=== PATIENT | female | born 1955 ===

== ENCOUNTER 2017-04-12 23:18 | Emergency (ER) | payer OTHER ==
[2017-04-12] MEDS ORDERED: Albuterol-Ipratrop 3 mg / 0.5 (3 ml) UD IH STA (23:33)
--- NOTE | 2017-04-12 23:40 | ED PDOC ---
Arrival/HPI - General Chief Complaint: Shortness Of Breath Time Seen by Provider: 04/12/17 23:33 Historian: Patient, Family - History of Present Illness Narrative History of Present Illness (Text): 04/12/17 23:33 A 62 year old female, whose past medical history includes asthma, hypertension, and skin CA, is accompanied by family and presents to the emergency department complaining of shortness of breath. Patient translated by family member. Per family member, patient has been sick since , but began experiencing shortness of breath and coughing since this morning. Also, patient experiences rhinorrhea for a while. Patient reports taking hypertension medication this morning, and upon arrival to ER, oxygen given to her has helped shortness of breath eleviate slightly. Patient denies any fever, nausea, vomiting, diarrhea, appetite changes, or any other complaints at this time. No PMD Time/Duration: Other (this morning) Past Medical History - Provider Review Nursing Documentation Reviewed: Yes - Cardiac Hx Cardiac Disorders: Yes Hx Hypertension: Yes - Pulmonary Hx Respiratory Disorders: Yes Hx Asthma: Yes - Hematological/Oncological Hx Blood Disorders: Yes Hx Cancer: Yes (squamous cell carcinoma) - Musculoskeletal/Rheumatological Hx Musculoskeletal Disorders: Yes Hx Arthritis: Yes - Gastrointestinal Hx Gastrointestinal Disorders: Yes Hx Gastroesophageal Reflux: Yes - Psychiatric Hx Substance Use: No Family/Social History - Physician Review Nursing Documentation Reviewed: Yes Family/Social History: No Known Family HX Smoking Status: Never Smoked Hx Alcohol Use: No Hx Substance Use: No Allergies/Home Meds Allergies/Adverse Reactions: Allergies Penicillins Allergy (Verified 04/12/17 23:21) ANAPHYLAXIS Home Medications: Home Meds Medication Instructions Recorded Confirmed Albuterol 0.042% [Albuterol 0.042% 04/12/17 Inhal Kaykay (1.25mg/3ml) UD] Famotidine [Pepcid] 04/12/17 Losartan [Cozaar] 04/12/17 Ranitidine HCl [Zantac 75] 04/12/17 Review of Systems - Physician Review All systems were reviewed & negative as marked: Yes - Review of Systems Constitutional: absent: Fevers ENT: Rhinorrhea (for a while) Respiratory: SOB (since this morning), Cough (since this morning) Cardiovascular: Chest Pain Gastrointestinal: absent: Diarrhea, Nausea, Vomiting, Appetite Changes Neurological: Headache Physical Exam Vital Signs Temp Pulse Resp BP Pulse Ox 04/13/17 02:06 98.4 F 86 20 123/64 98 04/13/17 00:10 82 22 126/67 98 - Systems Exam Respiratory/Chest: Present: Decreased Breath Sounds. No: Good Air Exchange ( poor air movement) Cardiovascular: Present: Regular Rate and Rhythm (non-accelerated) Lower Extremity: Present: NORMAL PULSES. No: Edema, Cyanosis Medical Decision Making ED Course and Treatment: 04/12/17 23:38 Impression: 62 year old female with shortness of breath. Physical exam shows regular rate and rhythm, non-accelerated; diminished breath sounds and poor air movement; good pulses of lower extremities, no cyanosis, no edema. Plan: -- EKG -- Chest X-ray -- Labs -- Duoneb -- Reassess and disposition Progress Notes: EKG: Ordered, reviewed, and independently interpreted the EKG. Rate : 93 BPM Rhythm : NSR Interpretation : Normal intervals, non-specific ST- and T-wave changes, LVH by voltage criteria. Comparison : No previous EKG for comparison. 04/13/17 01:52 On re-evaluation, patient feels better and is in no acute distress. I have discussed the results and plan with the patient, who expresses understanding. Patient in agreement with plan to be discharged home. Patient is stable for discharge. Patient was instructed to follow up with physician or return if symptoms worsen or new concerning symptoms arise. Patient will be given one more nebulizer treatment and oral steroid. Being sent home with steroid taper, box of 25 nebulizers, and nebulizer machine. - Lab Interpretations Lab Results: 04/13/17 00:00 04/13/17 00:00 Lab Results 04/13/17 00:00: Sodium 139, Potassium 3.4 L, Chloride 101, Carbon Dioxide 27, Anion Gap 15, BUN 17, Creatinine 0.6 L, Est GFR ( Amer) > 60, Est GFR ( Non-Af Amer) > 60, Random Glucose 147 H, Calcium 9.5, Total Bilirubin 0.4, AST 30, ALT 31, Alkaline Phosphatase 63, Lactate Dehydrogenase 385, Total Creatine Kinase 35, Troponin I < 0.01, Total Protein 7.6, Albumin 4.4, Globulin 3.2, Albumin/Globulin Ratio 1.4 04/13/17 00:00: WBC 7.9, RBC 4.43, Hgb 12.8, Hct 40.4, MCV 91.2, MCH 28.9, MCHC 31.7, RDW 14.0, Plt Count 263, MPV 10.3, Gran % 56.9, Lymph % (Auto) 27.4, [place] % (Auto) 7.7 H, Eos % (Auto) 7.6 H, Baso % (Auto) 0.4, Gran # 4.49, Lymph # 2.2 , [place] # 0.6, Eos # 0.6, Baso # 0.03 I have reviewed the lab results: Yes - RAD Interpretation Radiology Orders: 04/12/17 23:34 CHEST PORTABLE [RAD] Stat - Medication Orders Current Medication Orders: Discontinued Medications Acetaminophen (Tylenol 325mg Tab) 975 mg PO STAT STA Stop: 04/13/17 00:53 Last Admin: 04/13/17 00:59 Dose: 975 mg MAR Pain/Vitals Document 04/13/17 00:59 SS (Rec: 04/13/17 00:59 SS [id number]) Pain Reassessment Is This A Pain ReAssessment? 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 Hydrox/Mg Hydrox/Simethicone (Maalox Plus 30 Ml) 30 ml PO STAT STA Stop: 04/13/17 01:01 Last Admin: 04/13/17 01:18 Dose: 30 ml Albuterol Sulfate (Albuterol 0.083% Inhal Kaykay (2.5 Mg/3 Ml) Ud) 2.5 mg INH STAT STA Stop: 04/13/17 01:42 Last Admin: 04/13/17 01:49 Dose: 2.5 mg Albuterol/Ipratropium (Duoneb 3 Mg/0.5 Mg (3 Ml) Ud) 3 ml IH STAT STA Stop: 04/12/17 23:34 Last Admin: 04/12/17 23:56 Dose: 3 ml Prednisone (Prednisone Tab) 60 mg PO STAT ONE Stop: 04/13/17 01:51 Last Admin: 04/13/17 02:04 Dose: 60 mg - Scribe Statement The provider has reviewed the documentation as recorded by the Osmel Stuart Provider Scribe Attestation: All medical record entries made by the Scribe were at my direction and personally dictated by me. I have reviewed the chart and agree that the record accurately reflects my personal performance of the history, physical exam, medical decision making, and the department course for this patient. I have also personally directed, reviewed, and agree with the discharge instructions and disposition. Disposition/Present on Arrival - Present on Arrival Any Indicators Present on Arrival: No History of DVT/PE: No History of Uncontrolled Diabetes: No Urinary Catheter: No History of Decub. Ulcer: No History Surgical Site Infection Following: None - Disposition Have Diagnosis and Disposition been Completed?: Yes Diagnosis: Asthma Disposition: HOME/ ROUTINE Disposition Time: 03:50 Patient Plan: Discharge Condition: GOOD Discharge Instructions (ExitCare): Asthma (ED) Print Language: CYPRIOT Prescriptions: Albuterol 0.083% [Albuterol 0.083% Inhal Kaykay (2.5 mg/3 ml) UD] 2.5 mg IH Q4 PRN #25 neb PRN Reason: dyspnea Nebulizer and Compressor [Comp-Air Nebulizer System] 1 each QID #1 each predniSONE [predniSONE Tab] 20 mg PO DAILY #5 tab Referrals: [facility] [place] [Outside] - Follow up with primary Forms: [employer] (Ugandan)
[2017-04-13 00:16] VITALS: O2SAT 98
[2017-04-13 00:29] LABS: ALB/GLOB RATIO 1.4 (1.1-1.8); ALKALINE PHOSPHATASE 63 U/L (38-126); ALT/SGPT 31 U/L (7-56); AST/SGOT 30 U/L (14-36); BILIRUBIN,TOTAL 0.4 mg/dL (0.2-1.3); BLOOD UREA NITROGEN 17 mg/dL (7-21); CALCIUM 9.5 mg/dL (8.4-10.5); CARBON DIOXIDE 27 mmol/L (21-33); CHLORIDE 101 mmol/L (98-107); GFR AFRICAN-AMERICAN > 60; GLUCOSE,RANDOM 147 mg/dL (70-110); POTASSIUM 3.4 mmol/L (3.6-5.0); SODIUM 139 mmol/L (132-148); TOTAL PROTEIN 7.6 g/dL (5.8-8.3)
[2017-04-13 00:36] LABS: BASO # 0.03 K/mm3 (0.0-2.0); BASO % 0.4 % (0.0-3.0); EOS # 0.6 (0.0-0.7); EOS % 7.6 % (1.5-5.0); GRAN # 4.49 (1.4-6.5); GRAN % 56.9 % (50.0-68.0); HEMATOCRIT 40.4 % (36.0-48.0); LYMPH # 2.2 (1.2-3.4); LYMPH % 27.4 % (22.0-35.0); MEAN CELL VOLUME 91.2 fl (80.0-105.0); MEAN CORPUSCULAR HEMOGLOBIN 28.9 pg (25.0-35.0); MEAN CORPUSCULAR HGB CONC 31.7 g/dl (31.0-37.0); MEAN PLATELET VOLUME 10.3 fl (7.0-11.0); MONO # 0.6 (0.1-0.6); MONO % 7.7 % (1.0-6.0); WHITE BLOOD COUNT 7.9 10^3/ul (4.5-11.0)
[2017-04-13 00:41] LABS: TROPONIN I < 0.01 ng/mL
[2017-04-13] MEDS ORDERED: Alum-Mag Hydrox-Simethicone Susp (30 mL) PO STA (01:00)
[2017-04-13] MEDS ORDERED: Albuterol 0.083% Inhal Sol (2.5 mg/3 mL) UD INH STA (01:41)
[2017-04-13 02:07] VITALS: BP 123/64; PULSE 86; RESP 20; TEMP 98.4
--- NOTE | 2017-04-13 10:27 | RAD ---
HISTORY: SOB COMPARISON: No prior. FINDINGS: LUNGS: Poor inspiration with low lung volumes, crowded bronchovascular markings and minor bibasilar atelectasis. PLEURA: No significant pleural effusion identified, no pneumothorax apparent. CARDIOVASCULAR: Heart appears enlarged. OSSEOUS STRUCTURES: No significant abnormalities. VISUALIZED UPPER ABDOMEN: Normal. OTHER FINDINGS: None. IMPRESSION: Poor inspiration with low lung volumes, crowded bronchovascular markings and minor bibasilar atelectasis.
--- NOTE | 2017-04-13 20:07 | CARD ---
APPROVED REPORT EKG Measurement Heart [id number] [id number] <Conclusion> Normal sinus rhythm Voltage criteria for left ventricular hypertrophy Nonspecific T wave abnormality Abnormal ECG
== END 2017-04-13 02:20 | disposition home or self-care (01) ==
LOC: ED 23:18
DX: J45.909 Unspecified asthma, uncomplicated (principal); I10 Essential (primary) hypertension; Z88.0 Allergy status to penicillin

== ENCOUNTER 2017-04-15 01:31 | Inpatient (IN) | payer OTHER ==
[2017-04-15] MEDS ORDERED: Albuterol-Ipratrop 3 mg / 0.5 (3 ml) UD IH STA (01:54)
--- NOTE | 2017-04-15 01:56 | ED PDOC ---
Arrival/HPI - General Chief Complaint: Chest Pain Time Seen by Provider: 04/15/17 01:32 Historian: Patient, Endodontic Assistant - History of Present Illness Narrative History of Present Illness (Text): 04/15/17 01:53 62 year old female, whose past medical history includes asthma, hypertension, and skin cancer, presents to the ED complaining of chest pain and shortness of breath tonight. Patient reports returning from [place] four days ago where she has been given IV medications after inhaling chlorine and was also given prescriptions, which she never filled. Patient was evaluated in the Emergency department on 04/12/17 for shortness of breath and was prescribed Prednisone but did not start it until today. Patient also complains of nasal congestion. Patient denies any fever, chills, nausea, vomiting, diarrhea, back pain, neck pain, headache, dizziness, or any other complaints. Time/Duration: < week Symptom Onset: Gradual Symptom Course: Unchanged Activities at Onset: Rest Context: Home Past Medical History - Provider Review Nursing Documentation Reviewed: Yes - Reproductive Menopause: Yes - Cardiac Hx Cardiac Disorders: Yes Hx Hypertension: Yes - Pulmonary Hx Respiratory Disorders: Yes Hx Asthma: Yes - Neurological Hx Neurological Disorder: No - HEENT Hx HEENT Disorder: No - Renal Hx Renal Disorder: No - Endocrine/Metabolic Hx Endocrine Disorders: No - Hematological/Oncological Hx Blood Disorders: Yes Hx Cancer: Yes (squamous cell carcinoma) - Musculoskeletal/Rheumatological Hx Musculoskeletal Disorders: Yes Hx Arthritis: Yes - Gastrointestinal Hx Gastrointestinal Disorders: Yes Hx Gastroesophageal Reflux: Yes - Genitourinary/Gynecological Hx Genitourinary Disorders: No - Psychiatric Hx Psychophysiologic Disorder: No Hx Substance Use: No Family/Social History - Physician Review Nursing Documentation Reviewed: Yes Family/Social History: Unknown Family HX Smoking Status: Never Smoked Hx Alcohol Use: No Hx Substance Use: No Allergies/Home Meds Allergies/Adverse Reactions: Allergies Penicillins Allergy (Verified 04/15/17 01:43) ANAPHYLAXIS Home Medications: Home Meds Medication Instructions Recorded Confirmed Famotidine [Pepcid] 20 mg PO BID 04/12/17 04/15/17 Losartan [Cozaar] 12.5 mg PO DAILY 04/12/17 04/15/17 Ranitidine HCl [Zantac 75] 75 mg PO DAILY 04/12/17 04/15/17 Review of Systems - Physician Review All systems were reviewed & negative as marked: Yes - Review of Systems Constitutional: Normal. absent: Fevers Eyes: Normal ENT: Sinus Congestion Respiratory: SOB. absent: Cough Cardiovascular: Chest Pain Gastrointestinal: Normal. absent: Abdominal Pain Genitourinary Female: Normal Musculoskeletal: Normal Skin: Normal Neurological: Normal. absent: Headache, Dizziness Endocrine: Normal Hemo/Lymphatic: Normal Psychiatric: Normal Physical Exam Vital Signs Reviewed: Yes Vital Signs Temp Pulse Resp BP Pulse Ox 04/15/17 06:10 18 04/15/17 05:21 98.2 F 86 18 146/76 99 04/15/17 02:33 98.0 F 84 17 153/79 H 95 04/15/17 01:43 98.2 F 76 14 153/79 H 98 Temperature: Afebrile Blood Pressure: Normal Pulse: Regular Respiratory Rate: Normal Appearance: Positive for: Well-Appearing, Non-Toxic, Comfortable Pain Distress: None Mental Status: Positive for: Alert and Oriented X 3 - Systems Exam Head: Present: Atraumatic, Normocephalic Pupils: Present: PERRL Extroacular Muscles: Present: EOMI Conjunctiva: Present: Normal Mouth: Present: Moist Mucous Membranes Neck: Present: Normal Range of Motion Respiratory/Chest: Present: Clear to Auscultation, Good Air Exchange. No: Respiratory Distress, Accessory Muscle Use, Wheezes, Decreased Breath Sounds, Rales, Rhonchi, Tender to Palpation Cardiovascular: Present: Regular Rate and Rhythm, Normal S1, S2. No: Murmurs Abdomen: Present: Normal Bowel Sounds. No: Tenderness, Distention, Peritoneal Signs Back: Present: Normal Inspection Upper Extremity: Present: Normal Inspection. No: Cyanosis, Edema Lower Extremity: Present: Normal Inspection. No: Edema Neurological: Present: GCS=15, CN II-XII Intact, Speech Normal Skin: Present: Warm, Dry, Normal Color. No: Rashes Psychiatric: Present: Alert, Oriented x 3, Normal Insight, Normal Concentration Medical Decision Making ED Course and Treatment: 04/15/17 01:54 Impression: 62 year old female presents to the ED complaining of chest pain for 4 days. Differential Diagnosis included but are not limited to: asthmatic bronchitis vs pneumonia vs chest pain Plan: -- EGK -- Labs, D-Dimer, cardiac enzymes -- Blood culture -- Chest x-ray -- Albuterol -- Reassess and disposition Prior Visits: Notes and results from previous visits were reviewed. On 04/12/2017, pt was seen in the Emergency department shortness of breath and runny nose. Pt was d/c home. Progress Notes: 04/15/17 02:06 EKG: Ordered, reviewed, and independently interpreted the EKG. Rate : BPM Rhythm : 77 NSR Interpretation : Nonspecific ST/T wave changes. 04/15/17 03:10 Reviewed radiology, Chest X-ray shows no acute processes. 04/15/17 04:21 On reevaluation patient states chest pain and shortness of breath have improved but are still present. Patient offered hospital admission and has agreed with plan, 04/15/17 04:[address] Marcano, covering for Dr. Jarvis, who is aware and agrees with plan. Pt will go to [facility] observation for asthmatic bronchitis. - Lab Interpretations Microbiology Results: Microbiology Results 04/15/17 02:20 Blood-Venous Blood Culture - Preliminary NO GROWTH AFTER 48 HOURS 04/15/17 02:00 Blood-Venous Blood Culture - Preliminary NO GROWTH AFTER 48 HOURS Lab Results: 04/15/17 02:17 04/15/17 02:17 Lab Results 04/15/17 03:15: D-Dimer, Quantitative < 200 04/15/17 02:17: Sodium 138, Potassium 3.9, Chloride 101, Carbon Dioxide 26, Anion Gap 14, BUN 14, Creatinine 0.5 L, Est GFR ( Amer) > 60, Est GFR ( Non-Af Amer) > 60, Random Glucose 99, Calcium 9.2, Total Bilirubin 0.6, AST 23, ALT 30, Alkaline Phosphatase 65, Lactate Dehydrogenase 439, Total Creatine Kinase 40, Troponin I < 0.01, NT-Pro-B Natriuret Pep 43.2, Total Protein 7.8, Albumin 4.3, Globulin 3.4, Albumin/Globulin Ratio 1.2 04/15/17 02:17: WBC 8.3, RBC 4.31, Hgb 12.5, Hct 39.2, MCV 91.0, MCH 29.0, MCHC 31.9, RDW 14.1, Plt Count 263, MPV 10.0, Gran % 63.7, Lymph % (Auto) 27.3, [place] % (Auto) 7.7 H, Eos % (Auto) 1.2 L, Baso % (Auto) 0.1, Gran # 5.30, Lymph # 2.3 , [place] # 0.6, Eos # 0.1, Baso # 0.01 I have reviewed the lab results: Yes - RAD Interpretation Radiology Orders: 04/15/17 01:54 CHEST PORTABLE [RAD] Stat Framework Developer: ED Physician - EKG Interpretation Interpreted by ED Physician: Yes Type: 12 lead EKG - Medication Orders Current Medication Orders: Discontinued Medications Acetaminophen (Tylenol 325mg Tab) 650 mg PO Q4H PRN PRN Reason: Fever >100.5 F Last Admin: 04/17/17 06:29 Dose: 650 mg MAR Pain/Vitals Document 04/17/17 06:29 [email or web address] (Rec: 04/17/17 06:30 [email or web address] [id number]) Pain Reassessment Is This A Pain ReAssessment? No Sleep Is patient sleeping during reassessment? No Presence of Pain Presence of Pain Yes Pain Scale Used Pain Scale Used Numeric Location Pain Location Body Site Temporal Description Intermittent Intensity 6 Scale Used Numeric Radiation Location no Pain Behavior Facial Grimacing Aggravating Factors None Alleviating Factors Medication Albuterol/Ipratropium (Duoneb 3 Mg/0.5 Mg (3 Ml) Ud) 3 ml IH STAT STA Stop: 04/15/17 01:55 Last Admin: 04/15/17 02:30 Dose: 3 ml Albuterol/Ipratropium (Duoneb 3 Mg/0.5 Mg (3 Ml) Ud) 3 ml IH [id number] [facility] Last Admin: 04/17/17 13:17 Dose: Not Given Non-Admin Reason: Patient Refused Albuterol/Ipratropium (Duoneb 3 Mg/0.5 Mg (3 Ml) Ud) 3 ml IH Q2H PRN PRN Reason: Shortness of Breath Budesonide (Pulmicort Respules) 0.5 mg IH [id number] [facility] Last Admin: 04/17/17 07:34 Dose: 0.5 mg Famotidine (Pepcid) 20 mg PO BID [facility] Last Admin: 04/17/17 09:13 Dose: 20 mg Fluticasone Propionate (Flonase) 1 actuation NS DAILY [facility] Last Admin: 04/17/17 09:12 Dose: 1 spray Levofloxacin/Dextrose (Levaquin 750mg) 750 mg in 150 mls @ 100 mls/hr IVPB STAT STA PRN Reason: Protocol Stop: 04/15/17 06:13 Last Admin: 04/15/17 05:15 Dose: 100 mls/hr eMAR Start Stop Document 04/15/17 05:15 BART (Rec: 04/15/17 05:15 B[id number]) Intravenous Solution Start Date 04/15/17 Start Time 05:15 End Date 04/15/17 End time 06:45 Total Infusion Time 90 Ketorolac Tromethamine (Toradol) 30 mg IVP ONCE ONE Stop: 04/15/17 03:20 Last Admin: 04/15/17 04:17 Dose: 30 mg MAR Pain Assessment Document 04/15/17 04:17 JORGE (Rec: 04/15/17 04:17 JORGE [id number]) Pain Reassessment Is this a pain reassessment? Yes Sleep Is patient sleeping during reassessment? No Presence of Pain Presence of Pain Yes Location Pain Location Body Site Chest IVP Administration Document 04/15/17 04:17 JORGE (Rec: 04/15/17 04:17 JORGE [id number]) Charges for Administration # of IVP Administrations 1 Re-Assess: BEVERLEY Pain Assessment Document 04/15/17 05:17 (Rec: 04/15/17 06:44 [email or web address]) Pain Reassessment Is this a pain reassessment? Yes Sleep Is patient sleeping during reassessment? No Presence of Pain Presence of Pain No Levofloxacin (Levaquin) 500 mg PO DAILY BIN PRN Reason: Protocol Last Admin: 04/17/17 09:12 Dose: 500 mg Losartan Potassium (Cozaar) 12.5 mg PO DAILY [facility] Last Admin: 04/17/17 09:11 Dose: 12.5 mg MAR Pulse and Blood Pressure Document 04/17/17 09:11 BIR (Rec: 04/17/17 09:12 BIR [id number]) Pulse Pulse Rate (60-90) 80 Blood Pressure Blood Pressure (100/60-150/90) 125/78 Methylprednisolone (Solu-Medrol) 60 mg IVP ONCE ONE Stop: 04/15/17 04:47 Last Admin: 04/15/17 05:16 Dose: 60 mg IVP Administration Document 04/15/17 05:16 BART (Rec: 04/15/17 05:16 BART [id number]) Charges for Administration # of IVP Administrations 1 Methylprednisolone (Solu-Medrol) 40 mg IVP Q8H [facility] Last Admin: 04/15/17 21:21 Dose: 40 mg IVP Administration Document 04/15/17 21:21 SWE (Rec: 04/15/17 21:21 SWE [id number]) Charges for Administration # of IVP Administrations 1 Methylprednisolone (Solu-Medrol) 40 mg IVP Q12 [facility] Last Admin: 04/16/17 22:06 Dose: 40 mg IVP Administration Document 04/16/17 22:06 [email or web address] (Rec: 04/16/17 22:06 [email or web address] [id number]) Charges for Administration # of IVP Administrations 1 Prednisone (Prednisone Tab) 40 mg PO DAILY [facility] Last Admin: 04/17/17 09:13 Dose: 40 mg - Ektaibe Statement The provider has reviewed the documentation as recorded by the Osmel Castaneda All medical record entries made by the Osmel were at my direction and personally dictated by me. I have reviewed the chart and agree that the record accurately reflects my personal performance of the history, physical exam, medical decision making, and the department course for this patient. I have also personally directed, reviewed, and agree with the discharge instructions and disposition. Disposition/Present on Arrival - Present on Arrival Any Indicators Present on Arrival: No History of DVT/PE: No History of Uncontrolled Diabetes: No Urinary Catheter: No History of Decub. Ulcer: No History Surgical Site Infection Following: None - Disposition Have Diagnosis and Disposition been Completed?: Yes Diagnosis: Asthmatic bronchitis Disposition: HOSPITALIZED Disposition Time: 05:00 Condition: GOOD
[2017-04-15 02:28] LABS: BASO # 0.01 K/mm3 (0.0-2.0); BASO % 0.1 % (0.0-3.0); EOS # 0.1 (0.0-0.7); EOS % 1.2 % (1.5-5.0); GRAN # 5.3 (1.4-6.5); GRAN % 63.7 % (50.0-68.0); HEMATOCRIT 39.2 % (36.0-48.0); LYMPH # 2.3 (1.2-3.4); LYMPH % 27.3 % (22.0-35.0); MEAN CORPUSCULAR HGB CONC 31.9 g/dl (31.0-37.0); MONO # 0.6 (0.1-0.6); MONO % 7.7 % (1.0-6.0); RED CELL DISTRIBUTION WIDTH 14.1 % (11.5-14.5); WHITE BLOOD COUNT 8.3 10^3/ul (4.5-11.0)
[2017-04-15 02:39] LABS: ALB/GLOB RATIO 1.2 (1.1-1.8); ALKALINE PHOSPHATASE 65 U/L (38-126); ALT/SGPT 30 U/L (7-56); AST/SGOT 23 U/L (14-36); BILIRUBIN,TOTAL 0.6 mg/dL (0.2-1.3); BLOOD UREA NITROGEN 14 mg/dL (7-21); CALCIUM 9.2 mg/dL (8.4-10.5); CARBON DIOXIDE 26 mmol/L (21-33); CHLORIDE 101 mmol/L (98-107); GFR AFRICAN-AMERICAN > 60; GLUCOSE,RANDOM 99 mg/dL (70-110); POTASSIUM 3.9 mmol/L (3.6-5.0); SODIUM 138 mmol/L (132-148); TOTAL PROTEIN 7.8 g/dL (5.8-8.3)
[2017-04-15 02:49] LABS: TROPONIN I < 0.01 ng/mL
[2017-04-15] MEDS ORDERED: levoFLOXacin 750 mg in D5W 750 MG/150 ML BAG IVPB STA (04:44)
[2017-04-15] MEDS ORDERED: Albuterol-Ipratrop 3 mg / 0.5 (3 ml) UD IH PRN ×2 (04:44→06:48)
[2017-04-15] MEDS ORDERED: MethylPREDNISolone 40 mg Vial IVP ONE (04:46)
[2017-04-15] MEDS: Albuterol-Ipratrop 3 mg / 0.5 (3 ml) UD IH SCH ×3 (07:44→19:48)
[2017-04-15] MEDS: Budesonide 0.5 mg/2 ml Inhal Susp UD IH SCH ×2 (07:44→19:48)
--- NOTE | 2017-04-15 08:47 | RAD ---
HISTORY: sob COMPARISON: 04/13/2017. FINDINGS: LUNGS: The lungs are clear. PLEURA: No significant pleural effusion identified, no pneumothorax apparent. CARDIOVASCULAR: Normal. OSSEOUS STRUCTURES: No significant abnormalities. VISUALIZED UPPER ABDOMEN: Normal. OTHER FINDINGS: None. IMPRESSION: No active pulmonary disease.
[2017-04-15] MEDS: MethylPREDNISolone 40 mg Vial IVP SCH ×3 (10:25→21:21)
[2017-04-15] MEDS: Fluticasone Nasal 50 mcg/Spray NS SCH (13:18)
--- NOTE | 2017-04-15 17:39 | CARD ---
APPROVED REPORT EKG Measurement Heart [id number] GA 166P1 [id number] <Conclusion> Normal sinus rhythm Voltage criteria for left ventricular hypertrophy Abnormal ECG
[2017-04-15 18:14] VITALS: RESP 20
--- NOTE | 2017-04-15 18:42 | CON ---
DATE: 04/15/2017 PULMONARY CONSULTATION REASON FOR CONSULTATION: Asthma. REFERRING PHYSICIAN: Abdiel Jarvis DO HISTORY OF PRESENT ILLNESS: The patient is a 62-year-old female, with past medical history significant for asthma, recurrent bronchitis, hypertension, who presents to [facility] with a 4-day history of worsening shortness of breath at rest, dyspnea on exertion, cough, and minimal sputum production. There is no history of chest pain, coughing up of blood, or chest pain - made worse with deep respirations. There is no history of temperatures, chills, or infectious exposure. There is no history of night sweats, weight loss, or appetite change prior to the above events. No history of leg or calf pains. No history of syncope or diaphoresis. The patient has traveled back from [place] recently. No history of trauma. REVIEW OF SYSTEMS: The patient also states a runny nose and nasal congestion for the past 4 days. No history of nausea, vomiting, or diarrhea. No acute urinary symptoms. No new neurologic or musculoskeletal complaints. Rest of the review of systems is negative. ALLERGIES: PENICILLIN. SOCIAL HISTORY: Positive for tobacco and negative for alcohol. FAMILY HISTORY: No inheritable diseases. HOME MEDICATIONS: Include Pepcid, Cozaar, albuterol nebulizer treatments, Zantac, and prednisone. PHYSICAL EXAMINATION: GENERAL: The patient is not short of breath at rest. She is not using accessory muscles for breathing. VITAL SIGNS: Temperature is 98.2, pulse 86, respirations 18, blood pressure 146/76. Oxygen saturation on room air is 99%. HEENT: Normocephalic and atraumatic. No JVD. CARDIOVASCULAR: Positive S1 and S2. No S3 gallop. LUNGS: Decreased breath sounds at the bases. [id number]-nb-[id number] rhonchi and wheezing bilaterally. EXTREMITIES: No clubbing, cyanosis or edema. Calves are nontender to palpation. GASTROINTESTINAL: Abdomen is soft, nontender, and nondistended. Bowel sounds are positive. SKIN: No acute rash. NEUROLOGIC: Limited at the present time. PERTINENT LABORATORY DATA: Chest x-ray was done and reviewed. It is a semi-erect portable film. I do not appreciate any new or significant changes - compared to the previous film. Official results are pending. CBC: White count 8.3, hemoglobin 12.5, hematocrit 39.2, platelets of 263,000. D-dimer is negative - less than 200. Complete metabolic profile: Creatinine 0.5. The rest of the metabolic profile is within normal limits. IMPRESSION: 1. Acute bronchitis. 2. Acute sinusitis. 3. Asthma. 4. Hypertension. PLAN: The patient presents to [facility] with a 4-day history of worsening pulmonary symptoms. The patient also complains of a runny nose and nasal congestion for the past 4 days. I did obtain the history with the nurse (who is fluent in Malaysian). I did review the chest x-ray as above. I do not appreciate any new or significant changes. Official results are pending. On physical exam, there is [id number] bronchospasm noted. However, there is no significant alveolar-arterial gradient. Oxygen saturation on room air is 99%. I will start the patient on nebulizer treatments and intravenous steroids. I will also start the patient on nasal steroids - due to her upper respiratory tract symptoms. Lastly, the patient does have a history of smoking (questionable chronic obstructive pulmonary disease). I will also start oral antibiotic therapy this morning. There is no history of temperatures. There is no leukocytosis. The patient does feel better this morning and is clinically improved - compared to the past few days. Additional pulmonary intervention will be based on the clinical status of the patient. I will discuss the above with Dr. Jarvis this morning. Thank you very much for this pulmonary consultation. Ric Damico MD [email or web address]
--- NOTE | 2017-04-15 20:47 | HP ---
HISTORY OF PRESENT ILLNESS: I was called to admit Ms. Matta into the hospital. She comes into the emergency room with a history of being very short of breath, could not catch her breath. She is a 62-year-old female, who was in [place] and she had inhalation of chlorine, was given prescriptions, so she did not fill for prednisone and now she is very congested and short of breath. PAST MEDICAL HISTORY: Asthma, hypertension, skin cancer, menopause, squamous cell carcinoma of the skin, arthritis, and reflux. FAMILY HISTORY: Hypertension in the family. SOCIAL HISTORY: Never smoked. No alcohol. No drugs. ALLERGIES: TO PENICILLIN. MEDICATIONS: She takes Pepcid, Cozaar, and Zantac. REVIEW OF SYSTEMS: No acute vision changes or hearing changes. No sinus congestion. There is shortness of breath. There is chest pain. No abdominal pain. No nausea, vomiting, constipation, or diarrhea. There was wheezing before. No back pain or leg pain. Skin is intact. No lesions with the skin. No headache or dizziness. No sweating. PHYSICAL EXAMINATION: VITAL SIGNS: She has 98 temperature, 84 pulse, 17 respiratory rate, 153/79 blood pressure, and 95% O2 sat. GENERAL: Well appearing, nontoxic, and comfortable. HEENT: Head is atraumatic and normocephalic. Extraocular muscles are intact. Pupils are equal and reactive to light. Throat is moist. NECK: Supple. HEART: Regular rate. Normal S1 and S2. LUNGS: clear to auscultation with decreased breath sounds, occasional rhonchi. ABDOMEN: Soft and nontender. Positive bowel sounds. No guarding. No rebound. No CVA tenderness. Mildly obese. EXTREMITIES: No edema. NEUROLOGIC: GCS is 15. Cranial nerves II through XII grossly intact. SKIN: Warm and dry. No apparent rashes or ulcers. LYMPHATICS: Thyroid is midline. No palpable appreciable lymphadenopathy. LABORATORY DATA: She had 138 sodium, potassium 3.9, BUN 14, creatinine 0.5, GFR is greater than 60, and sugar is 99. Calcium is 9.2, total bilirubin is 0.6, AST is 23, ALT is 30, alkaline phosphatase 65, lactate dehydrogenase is 439, total creatine kinase is 40. Troponin I is less than 0.01. BNP is 42.2. Total protein is 7.8 and albumin is 4.3. D-dimer is less than 200. White count is 8.3, hemoglobin 12.5, hematocrit 39.2, and platelets of 263. On report, she had a chest x-ray, which showed no active disease. IMPRESSION AND PLAN: She had a pulmonary consult with Dr. Damico. She is now on albuterol around the clock, Flonase, Levaquin, Pepcid, Pulmicort, and methylprednisolone 60 mg IV once and 40 IV q.8 hours. She is here for acute asthma with wheezing and shortness of breath. Hopefully, she will improve . Abdiel Jarvis DO MTDD
[2017-04-16] MEDS: Albuterol-Ipratrop 3 mg / 0.5 (3 ml) UD IH SCH ×4 (01:18→19:24)
[2017-04-16 06:22] LABS: HEMATOCRIT 37.3 % (36.0-48.0); MEAN CELL VOLUME 90.8 fl (80.0-105.0); MEAN CORPUSCULAR HEMOGLOBIN 28.7 pg (25.0-35.0); MEAN CORPUSCULAR HGB CONC 31.6 g/dl (31.0-37.0); RED CELL DISTRIBUTION WIDTH 14.1 % (11.5-14.5); WHITE BLOOD COUNT 10.6 10^3/ul (4.5-11.0)
[2017-04-16 06:54] LABS: ALB/GLOB RATIO 1.2 (1.1-1.8); ALKALINE PHOSPHATASE 61 U/L (38-126); ALT/SGPT 26 U/L (7-56); AST/SGOT 18 U/L (14-36); BILIRUBIN,TOTAL 0.5 mg/dL (0.2-1.3); BLOOD UREA NITROGEN 14 mg/dL (7-21); CALCIUM 9.9 mg/dL (8.4-10.5); CARBON DIOXIDE 28 mmol/L (21-33); CHLORIDE 101 mmol/L (98-107); GFR AFRICAN-AMERICAN > 60; GLUCOSE,RANDOM 158 mg/dL (70-110); POTASSIUM 4.1 mmol/L (3.6-5.0); SODIUM 138 mmol/L (132-148); TOTAL PROTEIN 7.1 g/dL (5.8-8.3)
[2017-04-16] MEDS: Budesonide 0.5 mg/2 ml Inhal Susp UD IH SCH ×2 (08:19→19:24)
[2017-04-16] MEDS: Fluticasone Nasal 50 mcg/Spray NS SCH (09:00)
[2017-04-16] MEDS: MethylPREDNISolone 40 mg Vial IVP SCH ×2 (09:00→22:06)
[2017-04-16] MEDS: levoFLOXacin 500 MG TAB PO SCH (09:01)
--- NOTE | 2017-04-16 10:15 | PN ---
DATE: 04/16/2017 PULMONARY NOTE SUBJECTIVE: The patient appears comfortable this morning. She is not short of breath at rest. OBJECTIVE: VITALS (as noted in the computer): Temperature is 97.3, pulse is 58, respirations 18-20, blood pressure 110/72. Oxygen saturation on room air is 100%. HEENT: Normocephalic, atraumatic. No JVD. CARDIOVASCULAR: Positive S1, S2. No S3 gallop. LUNGS: Better breath sounds at the bases. Much less rhonchi. No wheezing this morning. EXTREMITIES: No clubbing, cyanosis, or edema. Calves are nontender to palpation. GI: Abdomen is soft, nontender, and nondistended. Bowel sounds are positive. SKIN: No acute rash. NEUROLOGIC: Limited at the present time. IMPRESSION: 1. Acute bronchitis. 2. Acute sinusitis. 3. Asthma. 4. Hypertension. PLAN: The patient appears comfortable this morning. She is not short of breath at rest. She does state to feeling much, much better overall. On physical exam, her bronchospasm is significantly less. In addition, the oxygen saturation on room air is now 100%. I will continue the current nebulizer treatments and decrease the intravenous steroids this morning. The patient also remains on nasal steroids and oral antibiotics. Her clinical status has significantly improved. She is advised to be out of bed as much as possible today. I will discuss the above with Dr. Jarvis. Ric Damico MD [facility]
--- NOTE | 2017-04-16 11:39 | PN ---
SUBJECTIVE: I saw Cecilia resting comfortably in bed. She slept well. She is breathing better. No wheezes this morning. She is eating. She is on Cozaar, DuoNeb, Flonase, Levaquin, Pepcid, Pulmicort, Solu-Medrol and Tylenol. I discussed this with the doorperson, Dr. Damico to lower the Solu-Medrol, and if she keeps on improving tomorrow, we will get her out. PHYSICAL EXAMINATION: VITAL SIGNS: She has 97.3 temp, 58 pulse, 110/72 blood pressure, 20 respiratory rate, 100% O2 sat. HEENT: Head is atraumatic and normocephalic. Throat is moist. NECK: Supple. HEART: Regular rate. LUNGS: Decreased breath sounds, but clear with less congestion. Faint wheeze, but much better than the day before. ABDOMEN: Soft, obese. EXTREMITIES: No edema. LABORATORY DATA: She has a 10.6 white count, 11.8 hemoglobin, 37.3 hematocrit, with a 268 platelets. 138 sodium, potassium 4.1, BUN 14, creatinine 0.6. GFR is greater than 60. Sugar is 158, from the steroids. Calcium is 9.9, total bilirubin is 0.5, AST is 18, ALT is 26, alkaline phosphatase 61. Troponin I was less than 0.01. Total protein is 7.1. ASSESSMENT AND PLAN: She has been seen by Pulmonology. I do think she is improving with her acute asthma and hopefully we will wean the steroids, then we can discharge her tomorrow. Abdiel Jarvis DO
[2017-04-17] MEDS: Albuterol-Ipratrop 3 mg / 0.5 (3 ml) UD IH SCH ×3 (01:00→13:17)
[2017-04-17 06:42] LABS: HEMATOCRIT 38.5 % (36.0-48.0); MEAN CELL VOLUME 90.8 fl (80.0-105.0); MEAN CORPUSCULAR HEMOGLOBIN 28.8 pg (25.0-35.0); MEAN CORPUSCULAR HGB CONC 31.7 g/dl (31.0-37.0); MEAN PLATELET VOLUME 9.6 fl (7.0-11.0); RED CELL DISTRIBUTION WIDTH 14.4 % (11.5-14.5); WHITE BLOOD COUNT 9.6 10^3/ul (4.5-11.0)
[2017-04-17 06:50] LABS: ALB/GLOB RATIO 1.3 (1.1-1.8); ALKALINE PHOSPHATASE 57 U/L (38-126); ALT/SGPT 21 U/L (7-56); AST/SGOT 20 U/L (14-36); BILIRUBIN,TOTAL 0.4 mg/dL (0.2-1.3); BLOOD UREA NITROGEN 16 mg/dL (7-21); CALCIUM 9.6 mg/dL (8.4-10.5); CARBON DIOXIDE 28 mmol/L (21-33); CHLORIDE 102 mmol/L (98-107); GFR AFRICAN-AMERICAN > 60; GLUCOSE,RANDOM 161 mg/dL (70-110); POTASSIUM 4.1 mmol/L (3.6-5.0); SODIUM 141 mmol/L (132-148); TOTAL PROTEIN 7.1 g/dL (5.8-8.3)
[2017-04-17] MEDS: Budesonide 0.5 mg/2 ml Inhal Susp UD IH SCH (07:34)
--- NOTE | 2017-04-17 08:24 | PN ---
DATE: 04/17/2017 PULMONARY NOTE SUBJECTIVE: The patient appears very comfortable this morning. She is not short of breath at rest. PHYSICAL EXAMINATION: VITAL SIGNS: Temperature is 98.8, pulse 87, respirations 18, blood pressure 134/76. Oxygen saturation on room air is between 96-100%. HEENT: Normocephalic, atraumatic. No JVD. CARDIOVASCULAR: Positive S1, S2. No S3 gallop. LUNGS: Clear bilaterally this morning. EXTREMITIES: No clubbing, cyanosis or edema. Calves are nontender to palpation. GI: Abdomen is soft, nontender and nondistended. Bowel sounds are positive. SKIN: No acute rash. NEUROLOGIC: Exam limited at the present time. IMPRESSION: 1. Acute bronchitis. 2. Acute sinusitis. 3. Asthma. 4. Hypertension. PLAN: The patient appears very comfortable this morning. She is not short of breath at rest. She does state to feeling much much better overall. On physical exam, her lungs are now clear. Oxygen saturation on room air ranges between 96-100%. I will continue with the current nebulizer treatments and change to oral steroids this morning. The patient also remains on oral antibiotic therapy. There are no temperatures noted. There is no leukocytosis. Clinical status of the patient is significantly improved. I will discuss the above with Dr. Jarvis. Ric Damico MD [facility]
[2017-04-17] MEDS: Fluticasone Nasal 50 mcg/Spray NS SCH (09:12)
[2017-04-17] MEDS: levoFLOXacin 500 MG TAB PO SCH (09:12)
[2017-04-17 09:15] VITALS: BP 125/78; PULSE 80
[2017-04-17 09:50] VITALS: TEMP 98; O2SAT 98
--- NOTE | 2017-04-17 09:53 | DS ---
HISTORY OF PRESENT ILLNESS: She is now off steroids and on p.o. prednisone. I discussed this with the electric accounting machine operator. She will be discharged today. She is doing well, a little bit of headache, but she is overall improved. PHYSICAL EXAMINATION: VITAL SIGNS: 98.8 temperature, 64 pulse, 116/69 blood pressure, 20 respiratory rate, 98% O2 sat on room air. HEENT: Head is atraumatic and normocephalic. She does have a headache, hopefully it will clear. HEART: Regular rate. LUNGS: Decreased breath sounds, but clear. ABDOMEN: Soft, obese. EXTREMITIES: No edema. MEDICATIONS: She is on Cozaar, DuoNeb, Flonase, Levaquin, Pepcid, prednisone, Pulmicort, and Tylenol. LABORATORY DATA: She has a 9.6 white count, 12.2 hemoglobin, 38.5 hematocrit with 283 platelets. Sodium 141, potassium 4.1, BUN 16, creatinine 0.6, GFR is greater than 60, sugar is 161, calcium is 9.6, total bilirubin is 0.4, AST is 20, ALT is 21, alkaline phosphatase is 57. Total protein 7.1. PLAN: She will be discharged today. She will have pharmacy call me when she gets home. I will keep her on 40 mg of prednisone for 3 days and 30 mg for 3 days, 20 mg for 3 days and 10 mg for 3 days and stop. She will be on Levaquin 500 for 5 days one a day. She is to follow up with the primary care doctor. She is here for asthma. Abdiel Jarvis DO
== END 2017-04-17 14:04 | disposition home or self-care (01) | DRG 203 ==
LOC: ED 01:31 → ERH 04:43 → 3RNO 05:54 → OBSVTOIN 10:32 → 3RNO 04-16 10:22
PROVIDERS: ADMIT Family Medicine; ATTEND Family Medicine
PROC: 3E0F7GC Introduction of Other Therapeutic Substance into Respiratory Tract, Via Natural or Artificial Opening (ICD-10-PCS; principal; 2017-04-15)
DX: J20.9 Acute bronchitis, unspecified (principal); J45.909 Unspecified asthma, uncomplicated; I10 Essential (primary) hypertension; M19.90 Unspecified osteoarthritis, unspecified site; K21.9 Gastro-esophageal reflux disease without esophagitis; J01.90 Acute sinusitis, unspecified; Z85.828 Personal history of other malignant neoplasm of skin; Z87.891 Personal history of nicotine dependence; Z82.49 Family history of ischemic heart disease and other diseases of the circulatory system